=== PATIENT | male | born 1995 | race Caucasian/White ===

== ENCOUNTER 2021-03-23 13:27 | Emergency (ER) | payer SELFPAY ==
[~2021-03-23] VITALS: Ht 157.5 cm; Wt 58.2 kg
[2021-03-23 13:40] VITALS: TEMP 98.6
[2021-03-23] MEDS ORDERED: BACTRIM DS 8001 TAB PO (16:04)
[2021-03-23 16:31] VITALS: BP 134/72; PULSE 80
== END 2021-03-23 16:35 | disposition home or self-care (01) ==
LOC: COL.ER 13:27
DX: S36.33XA Laceration of stomach, initial encounter (principal); Z23 Encounter for immunization; W26.0XXA Contact with knife, initial encounter; Y93.G1 Activity, food preparation and clean up
CPT/HCPCS: Q9967